=== PATIENT | female | born 1965 | race Caucasian/White ===

== ENCOUNTER 2020-11-14 17:19 | Inpatient (IN) ==
[2020-11-14 18:58] LABS: Basophils % 0.5 % (0.0-0.8); Eosinophils # 0.2 10*3/uL (0.0-0.87); Eosinophils % 2.7 % (0.00-10.9); Hematocrit 40.6 VOL% (35.7-47.0); Hemoglobin 13.5 GM/DL (12.0-16.0); Immature Granulocytes % 0.2 %; Immature Granulocytes Absolute 0.01 #; Lymphocytes # 1.9 10*3/uL (1.4-4.0); Lymphocytes % 34.1 % (21.3-54.2); Mean Corpuscular HGB Conc 33.3 GM/DL (32-36); Mean Corpuscular Volume 95.5 FL (87-102); Mean Platelet Volume 9.1 FL (9.6-12.0); Monocytes % 6.4 % (1.7-12.7); Neutrophils % 56.1 % (38.7-73.9); Platelet Count 293 T/CUMM (130-400); Red Blood Count 4.25 MC/CUMM (3.8-5.5); Red Cell Distribution Width 12.5 % (9.3-17.3); White Blood Count 5.6 T/CUMM (4-12)
[2020-11-14 19:12] LABS: Bilirubin,Urine Negative (Negative); Blood, Urine Small mg/dL (Negative); Glucose,Urine (UA) Negative (Negative); Ketones,Urine 20 mg/dL (Negative); Mucus,Urine Many /LPF (Occasional); Nitrite,Urine Negative (Negative); Protein,Urine Negative; RBC,Urine 1 /HPF (0-4); Squamous Epithelial Cell,Urine Occasional /HPF (0-10); Urine Appearance CLEAR (Clear); Urine Color Yellow (Yellow); Urine Urobilinogen < 2.0 EU/DL (0.2-1.0); WBC,Urine 1 /HPF (0-6)
[2020-11-14 19:14] LABS: Barbiturates Screen,Urine Negative (Negative); Benzodiazepines Screen,Urine Negative (Negative); Cannabinoid Screen,Urine Negative (Negative); Opiate Screen,Urine Negative (Negative); Phencyclidine Screen,Urine Negative (Negative)
[2020-11-14 19:18] LABS: Albumin 3.6 G/DL (3.4-5.0); Bilirubin,Total 0.5 MG/DL (0.2-1.0); Calcium 9.3 MG/DL (8.5-10.1); Osmolality,Calculated 279.1 MOS/KG (273-304); Potassium 3.7 MMOL/L (3.5-5.1); Total Protein 7.1 G/DL (5.0-7.5)
[2020-11-15] MEDS ORDERED: LORazepam 2 MG/1 ML VIAL IV PRN (00:04)
[2020-11-15] MEDS ORDERED: ONDANSETRON 4 MG/2 ML VIAL IV PRN (00:04)
[2020-11-15] MEDS: SODIUM CHLORIDE 0.9% 1,000 ML IV SCH ×3 (01:10→16:35)
[2020-11-15] MEDS: CARBIDOPA/LEVODOPA CR 25-100 MG TABLET PO SCH ×3 (07:27→16:35)
[2020-11-15] MEDS ORDERED: AMANTADINE 100 MG CAPSULE PO SCH (09:00)
[2020-11-15] MEDS: GABAPENTIN 600 MG TABLET PO SCH ×2 (09:41→21:07)
[2020-11-15] MEDS: DOCUSATE SODIUM 100 MG CAPSULE PO SCH ×2 (09:41→21:07)
[2020-11-15] MEDS: ASPIRIN CHEW 81 MG TABLET PO SCH (09:41)
[2020-11-15] MEDS: PANTOPRAZOLE 40 MG TABLET PO SCH (09:41)
[2020-11-15] MEDS: PARoxetine 20 MG TABLET PO SCH (09:41)
[2020-11-15] MEDS: BACLOFEN 20 MG TABLET PO SCH ×3 (09:46→21:07)
[2020-11-15] MEDS: BENZTROPINE 0.5 MG TABLET PO SCH (21:07)
[2020-11-15] MEDS: SIMVASTATIN 20 MG TABLET PO SCH (21:07)
[2020-11-16] MEDS: SODIUM CHLORIDE 0.9% 1,000 ML IV SCH ×3 (01:30→21:30)
[2020-11-16 07:13] LABS: Basophils % 0.6 % (0.0-0.8); Eosinophils # 0.2 10*3/uL (0.0-0.87); Eosinophils % 3.4 % (0.00-10.9); Hematocrit 43.2 VOL% (35.7-47.0); Hemoglobin 13.7 GM/DL (12.0-16.0); Immature Granulocytes % 0.3 %; Immature Granulocytes Absolute 0.02 #; Lymphocytes # 2.1 10*3/uL (1.4-4.0); Lymphocytes % 30.7 % (21.3-54.2); Mean Corpuscular HGB Conc 31.7 GM/DL (32-36); Mean Corpuscular Volume 99.3 FL (87-102); Mean Platelet Volume 9.2 FL (9.6-12.0); Monocytes % 5.7 % (1.7-12.7); Neutrophils % 59.3 % (38.7-73.9); Platelet Count 268 T/CUMM (130-400); Red Blood Count 4.35 MC/CUMM (3.8-5.5); Red Cell Distribution Width 12.3 % (9.3-17.3); White Blood Count 6.7 T/CUMM (4-12)
[2020-11-16 07:54] LABS: Albumin 2.8 G/DL (3.4-5.0); Bilirubin,Total 0.7 MG/DL (0.2-1.0); Calcium 8.7 MG/DL (8.5-10.1); Osmolality,Calculated 282.8 MOS/KG (273-304); Risk Ratio 3.58; Thyroid Stimulating Hormone 1.2 uIU/ml (0.358-3.74); Total Protein 6.2 G/DL (5.0-7.5); VLDL CHOLESTEROL 21.6 MG/DL
[2020-11-16] MEDS: DOCUSATE SODIUM 100 MG CAPSULE PO SCH ×2 (08:36→21:30)
[2020-11-16] MEDS: PANTOPRAZOLE 40 MG TABLET PO SCH (08:36)
[2020-11-16] MEDS: ASPIRIN CHEW 81 MG TABLET PO SCH (08:36)
[2020-11-16] MEDS: BACLOFEN 20 MG TABLET PO SCH ×3 (08:36→21:31)
[2020-11-16] MEDS: PARoxetine 20 MG TABLET PO SCH (08:36)
[2020-11-16] MEDS: GABAPENTIN 600 MG TABLET PO SCH ×2 (08:36→21:30)
[2020-11-16] MEDS: BENZTROPINE 0.5 MG TABLET PO SCH (21:30)
[2020-11-16] MEDS: ACETAMINOPHEN 325 MG TABLET PO PRN (21:31)
[2020-11-16] MEDS: SIMVASTATIN 20 MG TABLET PO SCH (21:32)
[2020-11-17] MEDS: SODIUM CHLORIDE 0.9% 1,000 ML IV SCH ×2 (05:03→05:24)
[2020-11-17 06:03] LABS: Basophils % 0.6 % (0.0-0.8); Eosinophils # 0.2 10*3/uL (0.0-0.87); Eosinophils % 4.5 % (0.00-10.9); Hematocrit 36.5 VOL% (35.7-47.0); Hemoglobin 11.9 GM/DL (12.0-16.0); Immature Granulocytes % 0.2 %; Immature Granulocytes Absolute 0.01 #; Lymphocytes # 2.3 10*3/uL (1.4-4.0); Lymphocytes % 43.1 % (21.3-54.2); Mean Corpuscular HGB Conc 32.6 GM/DL (32-36); Mean Corpuscular Volume 95.5 FL (87-102); Mean Platelet Volume 9.7 FL (9.6-12.0); Monocytes % 6.3 % (1.7-12.7); Neutrophils % 45.3 % (38.7-73.9); Platelet Count 236 T/CUMM (130-400); Red Blood Count 3.82 MC/CUMM (3.8-5.5); Red Cell Distribution Width 12.4 % (9.3-17.3); White Blood Count 5.4 T/CUMM (4-12)
[2020-11-17 06:25] LABS: Calcium 8.4 MG/DL (8.5-10.1); Osmolality,Calculated 283.7 MOS/KG (273-304); Potassium 3.7 MMOL/L (3.5-5.1)
[2020-11-17 06:50] LABS: Anisocytosis Slight; Platelet Estimate Normal
[2020-11-17] MEDS: ASPIRIN CHEW 81 MG TABLET PO SCH (09:02)
[2020-11-17] MEDS: DOCUSATE SODIUM 100 MG CAPSULE PO SCH ×2 (09:02→21:16)
[2020-11-17] MEDS: GABAPENTIN 600 MG TABLET PO SCH ×2 (09:03→21:16)
[2020-11-17] MEDS: PARoxetine 20 MG TABLET PO SCH (09:03)
[2020-11-17] MEDS: PANTOPRAZOLE 40 MG TABLET PO SCH (09:04)
[2020-11-17] MEDS: BACLOFEN 20 MG TABLET PO SCH ×3 (09:04→21:17)
[2020-11-17] MEDS: ACETAMINOPHEN 325 MG TABLET PO PRN (21:14)
[2020-11-17] MEDS: BENZTROPINE 0.5 MG TABLET PO SCH (21:17)
[2020-11-17] MEDS: SIMVASTATIN 20 MG TABLET PO SCH (21:17)
[2020-11-18 05:44] LABS: Basophils % 0.5 % (0.0-0.8); Eosinophils # 0.2 10*3/uL (0.0-0.87); Hematocrit 35.3 VOL% (35.7-47.0); Hemoglobin 11.9 GM/DL (12.0-16.0); Immature Granulocytes % 0.2 %; Immature Granulocytes Absolute 0.01 #; Lymphocytes # 2.4 10*3/uL (1.4-4.0); Lymphocytes % 39.9 % (21.3-54.2); Mean Corpuscular HGB Conc 33.7 GM/DL (32-36); Mean Corpuscular Volume 93.9 FL (87-102); Mean Platelet Volume 9.6 FL (9.6-12.0); Monocytes % 6.4 % (1.7-12.7); Platelet Count 247 T/CUMM (130-400); Red Blood Count 3.76 MC/CUMM (3.8-5.5); Red Cell Distribution Width 12.5 % (9.3-17.3); White Blood Count 6.1 T/CUMM (4-12)
[2020-11-18 05:59] LABS: Calcium 8.8 MG/DL (8.5-10.1); Osmolality,Calculated 283.7 MOS/KG (273-304); Potassium 3.1 MMOL/L (3.5-5.1)
[2020-11-18] MEDS: DOCUSATE SODIUM 100 MG CAPSULE PO SCH ×2 (09:49→20:03)
[2020-11-18] MEDS: GABAPENTIN 600 MG TABLET PO SCH ×2 (09:49→20:03)
[2020-11-18] MEDS: ASPIRIN CHEW 81 MG TABLET PO SCH (09:49)
[2020-11-18] MEDS: PANTOPRAZOLE 40 MG TABLET PO SCH (09:50)
[2020-11-18] MEDS: PARoxetine 20 MG TABLET PO SCH (09:50)
[2020-11-18] MEDS: BACLOFEN 20 MG TABLET PO SCH ×3 (09:50→20:03)
[2020-11-18] MEDS: POTASSIUM CHLORIDE 20 MEQ TABLET PO SCH (12:01)
[2020-11-18] MEDS: SODIUM CHLORIDE 0.9% 1,000 ML IV SCH (12:04)
[2020-11-18] MEDS: SIMVASTATIN 20 MG TABLET PO SCH (20:03)
[2020-11-18] MEDS: BENZTROPINE 0.5 MG TABLET PO SCH (20:03)
[2020-11-19] MEDS: SODIUM CHLORIDE 0.9% 1,000 ML IV SCH (05:30)
[2020-11-19] MEDS: POTASSIUM CHLORIDE 20 MEQ TABLET PO SCH (08:51)
[2020-11-19] MEDS: GABAPENTIN 600 MG TABLET PO SCH ×2 (08:51→21:15)
[2020-11-19] MEDS: PARoxetine 20 MG TABLET PO SCH (08:52)
[2020-11-19] MEDS: ASPIRIN CHEW 81 MG TABLET PO SCH (08:52)
[2020-11-19] MEDS: PANTOPRAZOLE 40 MG TABLET PO SCH (08:52)
[2020-11-19] MEDS: QUEtiapine 25 MG TABLET PO SCH ×2 (08:53→21:16)
[2020-11-19] MEDS: BACLOFEN 20 MG TABLET PO SCH (08:53)
[2020-11-19] MEDS: DOCUSATE SODIUM 100 MG CAPSULE PO SCH ×2 (08:53→21:15)
[2020-11-19] MEDS ORDERED: ZIPRASIDONE 20 MG/1 ML VIAL IM PRN (09:45)
[2020-11-19 10:56] LABS: INR 1.1; PT Patient Result 11.3 SECS (9.8-11.9)
[2020-11-19 17:41] LABS: Appearance,CSF Clear; Red Blood Cell,CSF 7 C/CUMM; White Blood Cell,CSF 10 C/CUMM
[2020-11-19 18:22] LABS: Glucose,CSF 52 MG/DL (40-70)
[2020-11-19] MEDS: SIMVASTATIN 20 MG TABLET PO SCH (21:16)
[2020-11-19 22:29] LABS: Lymphocytes,CSF 100 %
[2020-11-20 05:07] LABS: Basophils % 0.6 % (0.0-0.8); Eosinophils # 0.3 10*3/uL (0.0-0.87); Eosinophils % 4.6 % (0.00-10.9); Hematocrit 39.2 VOL% (35.7-47.0); Immature Granulocytes % 0.2 %; Immature Granulocytes Absolute 0.01 #; Lymphocytes # 2.8 10*3/uL (1.4-4.0); Lymphocytes % 41.8 % (21.3-54.2); Mean Corpuscular HGB Conc 33.2 GM/DL (32-36); Mean Corpuscular Volume 95.1 FL (87-102); Mean Platelet Volume 9.7 FL (9.6-12.0); Monocytes % 6.2 % (1.7-12.7); Neutrophils % 46.6 % (38.7-73.9); Platelet Count 275 T/CUMM (130-400); Red Blood Count 4.12 MC/CUMM (3.8-5.5); Red Cell Distribution Width 12.7 % (9.3-17.3); White Blood Count 6.6 T/CUMM (4-12)
[2020-11-20 05:30] LABS: Band Neutrophils 1 % (0-10); Eosinophils 1 % (0-10); Hypochromasia Slight; Lymphocytes 54 % (20-55); Segmented Neutrophils 36 % (50-85); Total Cells Counted 100
[2020-11-20 05:31] LABS: Microcytosis 1+; Platelet Estimate Normal
[2020-11-20 05:34] LABS: Albumin 3.1 G/DL (3.4-5.0); Calcium 9.4 MG/DL (8.5-10.1); Osmolality,Calculated 276.4 MOS/KG (273-304); Potassium 3.7 MMOL/L (3.5-5.1); Total Protein 6.4 G/DL (5.0-7.5)
[2020-11-20] MEDS: SODIUM CHLORIDE 0.9% 1,000 ML IV SCH (06:00)
[2020-11-20] MEDS: ASPIRIN CHEW 81 MG TABLET PO SCH (10:04)
[2020-11-20] MEDS: GABAPENTIN 600 MG TABLET PO SCH ×2 (10:04→20:03)
[2020-11-20] MEDS: PARoxetine 20 MG TABLET PO SCH (10:04)
[2020-11-20] MEDS: QUEtiapine 25 MG TABLET PO SCH ×2 (10:04→20:01)
[2020-11-20] MEDS: PANTOPRAZOLE 40 MG TABLET PO SCH (10:04)
[2020-11-20] MEDS: POTASSIUM CHLORIDE 20 MEQ TABLET PO SCH (10:04)
[2020-11-20] MEDS: DOCUSATE SODIUM 100 MG CAPSULE PO SCH ×2 (10:04→20:03)
[2020-11-20] MEDS: SIMVASTATIN 20 MG TABLET PO SCH (20:03)
[2020-11-21] MEDS: SODIUM CHLORIDE 0.9% 1,000 ML IV SCH (04:47)
[2020-11-21 06:13] LABS: Basophils % 0.5 % (0.0-0.8); Eosinophils # 0.3 10*3/uL (0.0-0.87); Eosinophils % 4.2 % (0.00-10.9); Immature Granulocytes % 0.3 %; Immature Granulocytes Absolute 0.02 #; Lymphocytes # 2.6 10*3/uL (1.4-4.0); Lymphocytes % 42.2 % (21.3-54.2); Mean Corpuscular HGB Conc 33.3 GM/DL (32-36); Mean Corpuscular Volume 94.7 FL (87-102); Mean Platelet Volume 9.9 FL (9.6-12.0); Monocytes % 7.8 % (1.7-12.7); Platelet Count 253 T/CUMM (130-400); Red Blood Count 4.12 MC/CUMM (3.8-5.5); Red Cell Distribution Width 12.6 % (9.3-17.3); White Blood Count 6.3 T/CUMM (4-12)
[2020-11-21 07:20] VITALS: BP 106/57
[2020-11-21] MEDS: PANTOPRAZOLE 40 MG TABLET PO SCH (08:43)
[2020-11-21] MEDS: DOCUSATE SODIUM 100 MG CAPSULE PO SCH (08:43)
[2020-11-21] MEDS: ASPIRIN CHEW 81 MG TABLET PO SCH (08:43)
[2020-11-21] MEDS: GABAPENTIN 600 MG TABLET PO SCH (08:44)
[2020-11-21] MEDS: PARoxetine 20 MG TABLET PO SCH (08:44)
[2020-11-21] MEDS: QUEtiapine 25 MG TABLET PO SCH (08:44)
[2020-11-21] MEDS: POTASSIUM CHLORIDE 20 MEQ TABLET PO SCH (08:44)
[2020-11-22 12:05] LABS: VDRL Spinal Fluid Negative (Negative)
[2020-11-23 12:04] LABS: CMV PCR Source CSF
[2020-11-23 13:16] LABS: West Nile Virus Ab, IgG, CSF Negative (Negative); West Nile Virus Ab, IgM, CSF Negative (Negative)
== END 2020-11-21 09:55 | disposition home or self-care (01) | DRG 880 ==
LOC: N.ED 17:19 → N.EDINP 22:15 → N.3E 22:45
PROVIDERS: ADMIT Family Medicine; ATTEND Family Medicine